=== PATIENT | male | born 1980 | race Caucasian/White ===

== ENCOUNTER 2024-06-07 14:12 | Emergency (ER) | payer OTHER ==
[~2024-06-07] VITALS: Ht 185.4 cm; Wt 156.0 kg
[~2024-06-07 14:12] MED LIST: ALBU90AE INH; AZIT500T8 MT; INSU100I73 SQ; METF-1150 PO; METO25TA6 PO; P20 MT
[2024-06-07 14:23] VITALS: O2SAT 97
[2024-06-07 15:13] LABS: BASOPHILS % 0.9 % (0.0-2.0); DIFFERENTIAL COMMENT 0; EOSINOPHILS % 8.2 % (0.0-5.0); HEMATOCRIT. 44.4 % (42.0-52.0); HEMOGLOBIN. 15.2 g/dL (14.0-18.0); LYMPHOCYTES % 33.8 % (20.0-50.0); MEAN CORPUSCULAR HEMOGLOBIN 32.1 pg (28.0-32.0); MEAN CORPUSCULAR HGB CONC 34.3 g/dL (31.0-37.0); MEAN CORPUSCULAR VOLUME 93.6 fL (80.0-94.0); MEAN PLATELET VOLUME 10.6 fl (7.4-10.4); MONOCYTES % 6.8 % (2.0-8.0); NEUTROPHILS % 50.3 % (40.0-76.0); PLATELET 206 x1000/uL (130-400); RED BLOOD CELL COUNT 4.74 mill/uL (4.7-6.1); RED CELL DISTRIBUTION WIDTH 12.6 % (11.6-14.6); WHITE BLOOD COUNT 5.9 x1000/uL (4.5-11.0)
[2024-06-07] MEDS: LACTATED RINGERS 1,000 ML IV ONE (15:36)
[2024-06-07 15:45] LABS: POTASSIUM 4.6 mEq/L (3.5-5.1)
[2024-06-07 15:46] LABS: CALCIUM 9.6 mg/dL (8.7-10.4)
[2024-06-07 15:59] LABS: CREATININE 1.6 mg/dL (0.6-1.3)
[2024-06-07 16:07] LABS: BG DEOXYHEMOGLOBIN 2.8 % (0.0-5.0)
[2024-06-07] MEDS: INSULIN LISPRO 100 UNITS/ML SUBCUT ONE (17:07)
[2024-06-07 19:23] VITALS: BP 160/98; PULSE 95; RESP 12; TEMP 36.8; O2SAT 96
== END 2024-06-07 19:25 | disposition home or self-care (01) ==
LOC: ER 14:12
DX: E11.65 Type 2 diabetes mellitus with hyperglycemia (principal); R00.0 Tachycardia, unspecified; I10 Essential (primary) hypertension; Z79.84 Long term (current) use of oral hypoglycemic drugs; Z79.899 Other long term (current) drug therapy; Z88.8 Allergy status to other drugs, medicaments and biological substances
CPT/HCPCS: 80048; 82010; 82962; 83930; 85025; 36415; 82375; 82803; 93005; 96360; 96372; 99285; J1815; J7120; Z7610 ×3; A4606